=== PATIENT | male | born 1960 | race Caucasian/White ===

== ENCOUNTER 2016-11-11 21:13 | Emergency (ER) | payer MEDICAID ==
[~2016-11-11] VITALS: Ht 170.2 cm; Wt 80.2 kg
[~2016-11-11 21:13] MED LIST: HYDR-3138 PO; HYDR-3240 PO; OXYC5CAP4 PO; SULF1TAB24 PO
[2016-11-12 04:39] VITALS: BP 101/59
== END 2016-11-12 04:49 | disposition home or self-care (01) ==
LOC: ED 22:30
DX: R07.2 Precordial pain (principal); R51 Headache; F10.229 Alcohol dependence with intoxication, unspecified; I10 Essential (primary) hypertension; J44.9 Chronic obstructive pulmonary disease, unspecified
CPT/HCPCS: 70450; 93005

== ENCOUNTER 2016-11-12 15:06 | Emergency (ER) | payer MEDICAID ==
[~2016-11-12] VITALS: Ht 170.2 cm; Wt 68.0 kg
[2016-11-12 15:11] VITALS: BP 114/74
[2016-11-12] MEDS ORDERED: KETOROLAC 30 MG/1 ML ONE (18:07)
[2016-11-12] MEDS ORDERED: KETOROLAC 30 MG/1 ML IM ONE (18:30)
== END 2016-11-12 18:22 | disposition home or self-care (01) ==
LOC: ED 15:56
DX: S42.212A Unspecified displaced fracture of surgical neck of left humerus, initial encounter for closed fracture (principal); F10.129 Alcohol abuse with intoxication, unspecified; J44.9 Chronic obstructive pulmonary disease, unspecified; V09.9XXA Pedestrian injured in unspecified transport accident, initial encounter; Y93.89 Activity, other specified; Y92.89 Other specified places as the place of occurrence of the external cause; Y99.8 Other external cause status
CPT/HCPCS: 73030; 96372; 99284; J1885